=== PATIENT | male | born 1950 | race Caucasian/White ===

== ENCOUNTER 2016-09-17 21:04 | Emergency (ER) | payer BC, OTHER ==
[2016-09-17 21:29] VITALS: BP 113/75
[2016-09-17 22:19] LABS: CHLORIDE,CL 105 mmol/L (101-111); SODIUM,NA 142 mmol/L (135-145)
--- NOTE | 2016-09-17 22:37 | EDM.PDOC ---
ED HPI GENERAL MEDICAL PROBLEM - General Chief Complaint: Lower Extremity Injury/Pain Stated Complaint: POSSIBLE BLOOD CLOT IN LEG Time Seen by Provider: 09/17/16 22:00 Source of Information: Reports: Patient History Limitations: Reports: No Limitations - History of Present Illness INITIAL COMMENTS - FREE TEXT/NARRATIVE: c/o left calf pain since yesterday, had fallen on knee 2 weeks ago. Notes he has been limiting activity and wearing sherry wrap to left knee. Increased pain with palpation of area and with ambulation. No prior hx of blood clots. Noted purple bruising to calf area this nahomi. . Left Lower Leg Pain Score (Numeric/FACES): 6 - Related Data Allergies Allergy/AdvReac Type Severity Reaction Status Date / Time No Known Allergies Allergy Verified 09/17/16 21:29 Home Meds: Home Meds Calcium Carbonate [Calcium] 500 mg PO BID 09/17/16 [History] Citalopram [Citalopram HBr] 40 mg PO DAILY 09/17/16 [History] Omeprazole 20 mg PO DAILY 09/17/16 [History] Past Medical History Gastrointestinal History: Reports: GERD Musculoskeletal History: Reports: Fracture Psychiatric History: Reports: Depression Social & Family History - Tobacco Use Smoking Status *Q: Never Smoker Second Hand Smoke Exposure: No - Recreational Drug Use Recreational Drug Use: No Review of Systems - Review of Systems Review Of Systems: ROS reveals no pertinent complaints other than HPI. ED EXAM, GENERAL - Physical Exam Exam: See Below Exam Limited By: No Limitations General Appearance: Alert, No Apparent Distress Ears: Normal External Exam Nose: Normal Inspection Throat/Mouth: Normal Inspection Head: Atraumatic Neck: Normal Inspection Respiratory/Chest: No Respiratory Distress Cardiovascular: Normal Peripheral Pulses, Regular Rate, Rhythm, No Edema Back Exam: Full Range of Motion Extremities: Normal Range of Motion, Sondra's Sign, Leg Pain (left calf, bruising medial mid 1/3 purple. mild tenderness with plapation, increased pain with flexion. ). No: Pedal Edema, Limited Range of Motion, Increased Warmth, Pallor, Redness Neurological: Alert, Oriented, Normal Cognition Psychiatric: Normal Affect, Normal Mood Skin Exam: Warm, Dry, Intact, Normal Color Course - Vital Signs Last Recorded V/S: Last Vital Signs Temp 98.4 F 09/17/16 21:26 Pulse 67 09/17/16 21:26 Resp 18 09/17/16 21:26 BP 113/75 09/17/16 21:26 Pulse Ox 95 09/17/16 21:26 - Orders/Labs/Meds Labs: Laboratory Tests 09/17/16 09/17/16 09/17/16 Range/Units 21:50 21:50 21:50 WBC 8.9 (5.0-10.0) 10^3/uL RBC 5.04 (4.6-6.2) 10^6/uL Hgb 15.4 (14.0-18.0) g/dL Hct 45.4 (40.0-54.0) % MCV 90.1 (80-100) fL MCH 30.6 (27.0-34.0) pg MCHC 33.9 (33.0-35.0) g/dL Plt Count 166 (150-450) 10^3/uL Neut % (Auto) 55.3 (42.2-75.2) % Lymph % (Auto) 33.9 (20.5-50.1) % [place] % (Auto) 7.9 (2-8) % Eos % (Auto) 2.3 (1.0-3.0) % Baso % (Auto) 0.6 (0.0-1.0) % D-Dimer, Quantitative 164 (0-400) ng/mL Sodium 142 (135-145) mmol/L Potassium 4.4 (3.6-5.0) mmol/L Chloride 105 (101-111) mmol/L Carbon Dioxide 30.0 (21.0-31.0) mmol/L Anion Gap 11.4 BUN 21 H (7-18) mg/dL Creatinine 0.9 (0.6-1.3) mg/dL Est Cr Clr Drug Dosing 85.62 mL/min Estimated GFR (MDRD) > 60 BUN/Creatinine Ratio 23.33 Glucose 109 H (74-105) mg/dL Lactic Acid (0.5-2.2) mmol/L Calcium 9.2 (8.4-10.2) mg/dl Total Bilirubin 0.7 (0.2-1.0) mg/dL AST 15 (10-42) IU/L ALT 15 (10-60) IU/L Alkaline Phosphatase 68 (42-121) IU/L B-Natriuretic Peptide 22 (0-100) pg/ml Total Protein 6.7 (6.7-8.2) g/dl Albumin 4.2 (3.2-5.5) g/dl Globulin 2.5 Albumin/Globulin Ratio 1.68 Amylase 60 (28-100) U/L 09/17/16 Range/Units 21:50 WBC (5.0-10.0) 10^3/uL RBC (4.6-6.2) 10^6/uL Hgb (14.0-18.0) g/dL Hct (40.0-54.0) % MCV (80-100) fL MCH (27.0-34.0) pg MCHC (33.0-35.0) g/dL Plt Count (150-450) 10^3/uL Neut % (Auto) (42.2-75.2) % Lymph % (Auto) (20.5-50.1) % [place] % (Auto) (2-8) % Eos % (Auto) (1.0-3.0) % Baso % (Auto) (0.0-1.0) % D-Dimer, Quantitative (0-400) ng/mL Sodium (135-145) mmol/L Potassium (3.6-5.0) mmol/L Chloride (101-111) mmol/L Carbon Dioxide (21.0-31.0) mmol/L Anion Gap BUN (7-18) mg/dL Creatinine (0.6-1.3) mg/dL Est Cr Clr Drug Dosing mL/min Estimated GFR (MDRD) BUN/Creatinine Ratio Glucose (74-105) mg/dL Lactic Acid 0.9 (0.5-2.2) mmol/L Calcium (8.4-10.2) mg/dl Total Bilirubin (0.2-1.0) mg/dL AST (10-42) IU/L ALT (10-60) IU/L Alkaline Phosphatase (42-121) IU/L B-Natriuretic Peptide (0-100) pg/ml Total Protein (6.7-8.2) g/dl Albumin (3.2-5.5) g/dl Globulin Albumin/Globulin Ratio Amylase (28-100) U/L - Re-Assessments/Exams Free Text/Narrative Re-Assessment/Exam: 09/18/16 03:40 Negative D-dimer. Ultrasound unavilable. Discussed with patient findings and recommendation for follow up in am when US available. Lower probability of clot with negative d-dimer but should have ultrasound. Departure - Departure Time of Disposition: 22:32 Disposition: Home, Self-Care 01 Condition: Fair Clinical Impression: Left leg pain - Discharge Information Instructions: Venous Thromboembolism Forms: ED Department Discharge Additional Instructions: tylenol or ibuprofen for discomfort follow up in clinic to arrange ultrasound and followup with leg pain urgent follow up if any breathing difficulty
== END 2016-09-17 22:46 | disposition home or self-care (01) ==
LOC: DL.ED 21:04
DX: S80.12XA Contusion of left lower leg, initial encounter (principal); K21.9 Gastro-esophageal reflux disease without esophagitis; F32.9 Major depressive disorder, single episode, unspecified; Z79.899 Other long term (current) drug therapy; X58.XXXA Exposure to other specified factors, initial encounter
CPT/HCPCS: 36415; 80053; 82150; 83605; 83880; 85025; 85379; 99283

== ENCOUNTER 2018-08-07 20:24 | Emergency (ER) | payer MEDICARE, OTHER ==
[2018-08-07] MEDS ORDERED: Nitroglycerin 0.4 MG Tab.SL SL ONE (20:42)
[2018-08-07] MEDS ORDERED: Aspirin 81 MG Tab.Chew PO ONE (20:42)
--- NOTE | 2018-08-07 21:03 | EDM.PDOC ---
ED HPI GENERAL MEDICAL PROBLEM - General Chief Complaint: Chest Pain Stated Complaint: CHEST PAIN Time Seen by Provider: 08/07/18 20:35 Source of Information: Reports: Patient, RN - History of Present Illness INITIAL COMMENTS - FREE TEXT/NARRATIVE: left lateral chest pain sudden onset sharp, hurt to breathe, approximately 1/2 hour [employer], pain some better at present, initially 8/10 now 6/10 hurts only with movement or deep breathing, absent at rest Left Chest Pain Score (Numeric/FACES): 6 - Related Data Allergies Allergy/AdvReac Type Severity Reaction Status Date / Time No Known Allergies Allergy Verified 08/07/18 20:27 Home Meds: Home Meds Calcium Carbonate [Calcium] 500 mg PO BID 09/17/16 [History] Citalopram [Citalopram HBr] 40 mg PO DAILY 09/17/16 [History] Omeprazole 20 mg PO DAILY 09/17/16 [History] Past Medical History HEENT History: Reports: Impaired Vision Gastrointestinal History: Reports: GERD Musculoskeletal History: Reports: Fracture Psychiatric History: Reports: Depression - Past Surgical History HEENT Surgical History: Reports: Tonsillectomy Social & Family History - Tobacco Use Smoking Status *Q: Never Smoker - Caffeine Use Caffeine Use: Reports: None - Recreational Drug Use Recreational Drug Use: No ED ROS GENERAL - Review of Systems Review Of Systems: ROS reveals no pertinent complaints other than HPI. ED EXAM, GENERAL - Physical Exam Exam: See Below Exam Limited By: No Limitations General Appearance: Alert, No Apparent Distress, Anxious Eye Exam: Bilateral Eye: PERRL Ears: Normal External Exam Nose: Normal Inspection Throat/Mouth: Normal Inspection Head: Atraumatic, Other Neck: Normal Inspection Respiratory/Chest: No Respiratory Distress, Lungs Clear, Normal Breath Sounds, Other (mid left lateral point tenderness with palpation) Cardiovascular: Normal Peripheral Pulses, Regular Rate, Rhythm, No Edema GI/Abdominal: Normal Bowel Sounds Back Exam: Normal Inspection, Full Range of Motion Extremities: Normal Inspection, Normal Range of Motion Neurological: Alert, Oriented Psychiatric: Normal Affect, Normal Mood Skin Exam: Warm, Dry, Intact, Normal Color EKG INTERPRETATION Rhythm: NSR Course - Vital Signs Last Recorded V/S: Last Vital Signs Temp 96.9 F 08/07/18 20:27 Pulse 59 L 08/08/18 01:33 Resp 16 08/08/18 01:33 BP 106/71 08/08/18 01:33 Pulse Ox 96 08/08/18 01:33 - Orders/Labs/Meds Orders: Active Orders 24 hr Category Date Time Status EKG 12 Lead [EKG Documentation Completion] [] URGENT Care 08/07/18 20:31 Active EKG 12 Lead [EKG Documentation Completion] [] URGENT Care 08/08/18 00:30 Active Labs: Laboratory Tests 08/07/18 08/07/18 08/07/18 Range/Units 20:35 20:35 20:35 WBC 10.9 H (5.0-10.0) 10^3/uL RBC 5.57 (4.6-6.2) 10^6/uL Hgb 17.0 D (14.0-18.0) g/dL Hct 48.4 (40.0-54.0) % MCV 86.9 D (80-100) fL MCH 30.5 (27.0-34.0) pg MCHC 35.1 H (33.0-35.0) g/dL Plt Count 174 (150-450) 10^3/uL Neut % (Auto) 61.0 (42.2-75.2) % Lymph % (Auto) 30.4 (20.5-50.1) % [place] % (Auto) 6.8 (2-8) % Eos % (Auto) 1.4 (1.0-3.0) % Baso % (Auto) 0.4 (0.0-1.0) % D-Dimer, Quantitative (0-400) ng/mL Sodium 138 (135-145) mmol/L Potassium 4.0 (3.6-5.0) mmol/L Chloride 102 (101-111) mmol/L Carbon Dioxide 26.0 (21.0-31.0) mmol/L Anion Gap 14.0 BUN 19 H (7-18) mg/dL Creatinine 1.1 (0.6-1.3) mg/dL Est Cr Clr Drug Dosing 68.21 mL/min Estimated GFR (MDRD) > 60 BUN/Creatinine Ratio 17.27 Glucose 92 (74-105) mg/dL Calcium 9.2 (8.4-10.2) mg/dl Magnesium 2.2 (1.8-2.5) mg/dL Total Bilirubin 1.4 H (0.2-1.0) mg/dL AST 18 (10-42) IU/L ALT 14 (10-60) IU/L Alkaline Phosphatase 78 (42-121) IU/L Creatine Kinase 62 (26-174) IU/L Creatine Kinase Index 2.9 H (0-2.4) % CK-MB (CK-2) 1.80 (0.4-4.7) ng/mL Troponin I < 0.02 (0.00-0.02) ng/ml Total Protein 7.3 (6.7-8.2) g/dl Albumin 4.6 (3.2-5.5) g/dl Globulin 2.7 Albumin/Globulin Ratio 1.70 Amylase 56 (28-100) U/L Lipase 43 (22-51) U/L 08/07/18 08/08/18 Range/Units 20:35 00:35 WBC (5.0-10.0) 10^3/uL RBC (4.6-6.2) 10^6/uL Hgb (14.0-18.0) g/dL Hct (40.0-54.0) % MCV (80-100) fL MCH (27.0-34.0) pg MCHC (33.0-35.0) g/dL Plt Count (150-450) 10^3/uL Neut % (Auto) (42.2-75.2) % Lymph % (Auto) (20.5-50.1) % [place] % (Auto) (2-8) % Eos % (Auto) (1.0-3.0) % Baso % (Auto) (0.0-1.0) % D-Dimer, Quantitative < 100 (0-400) ng/mL Sodium (135-145) mmol/L Potassium (3.6-5.0) mmol/L Chloride (101-111) mmol/L Carbon Dioxide (21.0-31.0) mmol/L Anion Gap BUN (7-18) mg/dL Creatinine (0.6-1.3) mg/dL Est Cr Clr Drug Dosing mL/min Estimated GFR (MDRD) BUN/Creatinine Ratio Glucose (74-105) mg/dL Calcium (8.4-10.2) mg/dl Magnesium (1.8-2.5) mg/dL Total Bilirubin (0.2-1.0) mg/dL AST (10-42) IU/L ALT (10-60) IU/L Alkaline Phosphatase (42-121) IU/L Creatine Kinase (26-174) IU/L Creatine Kinase Index (0-2.4) % CK-MB (CK-2) (0.4-4.7) ng/mL Troponin I < 0.02 (0.00-0.02) ng/ml Total Protein (6.7-8.2) g/dl Albumin (3.2-5.5) g/dl Globulin Albumin/Globulin Ratio Amylase (28-100) U/L Lipase (22-51) U/L Meds: Medications Discontinued Medications Generic Name Dose Route Start Last Admin Trade Name Freq PRN Reason Stop Dose Admin Aspirin 324 mg 08/07/18 20:42 08/07/18 20:46 Aspirin PO 08/07/18 20:43 324 mg ONETIME ONE Administration Ketorolac Tromethamine 30 mg 08/08/18 01:35 08/08/18 01:43 Toradol IVPUSH 08/08/18 01:36 30 mg ONETIME ONE Administration Nitroglycerin 0.4 mg 08/07/18 20:42 Nitrostat SL 08/07/18 20:43 ONETIME ONE - Re-Assessments/Exams Free Text/Narrative Re-Assessment/Exam: 08/08/18 02:41 light dozing, pain present only with movement. Results of labs, exam and EKG areviewed with patient. No acute findings. Recommend follow up with PCP this week. Departure - Departure Time of Disposition: 02:14 Disposition: Home, Self-Care 01 Condition: Good Clinical Impression: Non-cardiac chest pain Instructions: Chest Wall Pain, [id number] Forms: ED Department Discharge Additional Instructions: rest, light activity tylenol 650mg every 4 hours as needed for discomfort clinic follow up later this week urgent follow up if symptoms worsen, SOB, dizziness palpations weakness - My Orders Last 24 Hours: My Active Orders 08/07/18 20:31 EKG 12 Lead [EKG Documentation Completion] [RC] URGENT 08/08/18 00:30 EKG 12 Lead [EKG Documentation Completion] [RC] URGENT - Assessment/Plan Last 24 Hours: My Active Orders 08/07/18 20:31 EKG 12 Lead [EKG Documentation Completion] [RC] URGENT 08/08/18 00:30 EKG 12 Lead [EKG Documentation Completion] [RC] URGENT
[2018-08-07 21:05] LABS: CHLORIDE,CL 102 mmol/L (101-111); SODIUM,NA 138 mmol/L (135-145)
[2018-08-08 01:33] VITALS: BP 106/71
[2018-08-08] MEDS ORDERED: Ketorolac 30 MG/ML SDV IVPUSH ONE (01:35)
== END 2018-08-08 02:45 | disposition home or self-care (01) ==
LOC: DL.ED 20:24
DX: R07.89 Other chest pain (principal); K21.9 Gastro-esophageal reflux disease without esophagitis; Z79.899 Other long term (current) drug therapy
CPT/HCPCS: 36415; 71045; 80053; 82150; 82550; 82553; 83690; 83735; 84484; 85025; 85379; 93005; 96374; 99285; A9270; J1885

== ENCOUNTER 2022-06-02 06:22 | Day surgery (SDC) | payer MEDICARE, OTHER ==
[~2022-06-02 06:22] MED LIST: Midazolam 1 MG/ML 2 ML SDV ONE; fentaNYL 100 MCG/2 ML SDV ONE
[2022-06-02] MEDS ORDERED: fentaNYL 100 MCG/2 ML SDV IV ONE ×3 (06:23→07:12)
[2022-06-02] MEDS ORDERED: Midazolam 1 MG/ML 2 ML SDV IV ONE ×7 (06:23→07:20)
[2022-06-02] MEDS ORDERED: Dextrose 5%-0.45% NaCl 1,000 ML IV SCH (06:40)
[2022-06-02 09:17] VITALS: PULSE 54
[2022-06-02 10:38] VITALS: BP 109/68
== END 2022-06-02 09:40 | disposition home or self-care (01) ==
LOC: DL.ENDO 06:22
PROVIDERS: ATTEND Internal Medicine Gastroenterology
DX: Z12.11 Encounter for screening for malignant neoplasm of colon (principal); K21.9 Gastro-esophageal reflux disease without esophagitis; F41.1 Generalized anxiety disorder; F32.A Depression, unspecified; E78.00 Pure hypercholesterolemia, unspecified; E53.8 Deficiency of other specified B group vitamins; Z98.890 Other specified postprocedural states; Z88.5 Allergy status to narcotic agent
CPT/HCPCS: G0121; J2250; J3010; J7042

== ENCOUNTER 2023-12-09 07:23 | Day surgery (SDC) | payer MEDICARE, OTHER ==
[~2023-12-09 07:23] MED LIST changes: +Acetaminophen 325 MG Tab PO PRN; -Midazolam 1 MG/ML 2 ML SDV ONE; -fentaNYL 100 MCG/2 ML SDV ONE
[2023-12-09] MEDS ORDERED: Ondansetron 4 MG/2 ML SDV IVPUSH PRN (07:30)
[2023-12-09] MEDS ORDERED: Acetaminophen/Codeine 300-30 MG Tab PO PRN (07:30)
[2023-12-09] MEDS: Sodium Chloride 0.9% 10 ML Syringe FLUSH PRN (07:47)
[2023-12-09] MEDS: Proparacaine 0.5% Ophth Soln 15 ML Bottle EYELF ONE ×3 (07:57→08:37)
[2023-12-09] MEDS: Moxifloxacin 0.5% Ophth Soln 3 ML Bottle EYELF ONE (07:58)
[2023-12-09] MEDS: Povidone-Iodine 5% Sterile Ophth Soln 30 ML Bottle EYELF ONE ×3 (07:58→08:38)
[2023-12-09] MEDS: Tropicamide 1% Ophth Soln 15 ML Bottle EYELF ONE (08:00)
[2023-12-09] MEDS: Phenylephrine 10% Ophth Soln 5 ML Bot EYELF ONE (08:01)
[2023-12-09] MEDS: Timolol Maleate 0.5% Ophth Soln 5 ML Bottle EYELF ONE (08:02)
[2023-12-09] MEDS: Cataract Ophth Solution EYELF ONE (08:03)
[2023-12-09] MEDS: Lidocaine 1% 30 ML SDV ONE ×2 (08:27→08:57)
[2023-12-09] MEDS: Vancomycin 500 MG SDV EYELF ONE ×2 (08:28→08:57)
[2023-12-09] MEDS: Apraclonidine 0.5% Ophth Soln 5 ML Bot EYELF ONE ×2 (08:28→09:02)
[2023-12-09] MEDS: Diclofenac Sodium 0.1% Ophth Soln 5 ML Bottle EYELF ONE ×2 (08:29→09:03)
[2023-12-09] MEDS: Dexamethasone/Neomycin/Polymyxin B Ophth Oint 3.5 GM Tube EYELF ONE ×2 (08:29→09:03)
[2023-12-09] MEDS: Balanced Salt Solution Ophth Irrig 15 ML Bottle EYELF ONE (08:50)
[2023-12-09] MEDS: Dexamethasone 4 MG/ML SDV ONE (08:55)
[2023-12-09 09:34] VITALS: BP 96/59; PULSE 55
== END 2023-12-09 09:40 | disposition home or self-care (01) ==
LOC: DL.SDS 07:23
PROVIDERS: ATTEND Ophthalmology
DX: H25.812 Combined forms of age-related cataract, left eye (principal); F32.A Depression, unspecified; K21.9 Gastro-esophageal reflux disease without esophagitis; E78.00 Pure hypercholesterolemia, unspecified
CPT/HCPCS: 00142; 99100; A9270-GY; J1100; J3370; J3490

== ENCOUNTER 2023-12-23 07:32 | Day surgery (SDC) | payer MEDICARE, OTHER ==
[2023-12-23] MEDS: Proparacaine 0.5% Ophth Soln 15 ML Bottle EYERT ONE ×3 (06:39→08:40)
[2023-12-23] MEDS: Lidocaine 1% 30 ML SDV ONE ×2 (06:40→08:53)
[2023-12-23] MEDS: Povidone-Iodine 5% Sterile Ophth Soln 30 ML Bottle EYERT ONE ×3 (06:40→08:42)
[2023-12-23] MEDS: Vancomycin 500 MG SDV EYERT ONE ×2 (06:41→08:53)
[2023-12-23] MEDS: Apraclonidine 0.5% Ophth Soln 5 ML Bot EYERT ONE ×2 (06:43→08:56)
[2023-12-23] MEDS: Diclofenac Sodium 0.1% Ophth Soln 5 ML Bottle EYERT ONE ×2 (06:44→08:56)
[2023-12-23] MEDS: Dexamethasone/Neomycin/Polymyxin B Ophth Oint 3.5 GM Tube EYERT ONE ×2 (06:44→08:59)
[~2023-12-23 07:32] MED LIST changes: +Acetaminophen/Codeine 300-30 MG Tab PO PRN; +Ondansetron 4 MG/2 ML SDV IVPUSH PRN
[2023-12-23] MEDS: Moxifloxacin 0.5% Ophth Soln 3 ML Bottle EYERT ONE (08:01)
[2023-12-23] MEDS: Tropicamide 1% Ophth Soln 15 ML Bottle EYERT ONE (08:02)
[2023-12-23] MEDS: Phenylephrine 10% Ophth Soln 5 ML Bot EYERT ONE (08:03)
[2023-12-23] MEDS: Sodium Chloride 0.9% 10 ML Syringe FLUSH PRN (08:04)
[2023-12-23] MEDS: Timolol Maleate 0.5% Ophth Soln 5 ML Bottle EYERT ONE (08:05)
[2023-12-23] MEDS: Cataract Ophth Solution EYERT ONE (08:06)
[2023-12-23 09:41] VITALS: BP 107/66; PULSE 53
== END 2023-12-23 09:35 | disposition home or self-care (01) ==
LOC: DL.SDS 07:32
PROVIDERS: ATTEND Ophthalmology
DX: H25.811 Combined forms of age-related cataract, right eye (principal); K21.9 Gastro-esophageal reflux disease without esophagitis; F32.A Depression, unspecified; E78.00 Pure hypercholesterolemia, unspecified
CPT/HCPCS: A9270-GY; J3370; J3490